=== PATIENT | male | born 1955 | race African-American/Black ===

== ENCOUNTER 2019-09-04 17:29 | Observation (INO) ==
[2019-09-04] MEDS ORDERED: ONDANSETRON 4 MG/2 ML VIAL IV STA (18:27)
[2019-09-04] MEDS ORDERED: DEXTROSE 50% 25 GM/50 ML VIAL IV STA (18:30)
[2019-09-04] MEDS ORDERED: DEXTROSE 50% 25 GM/50 ML SYRINGE IV ONE (18:31)
[2019-09-04 18:53] LABS: Basophils # 0.1 10*3/uL (0.0-0.2); Basophils % 0.6 % (0.0-0.8); Eosinophils # 0.1 10*3/uL (0.0-0.87); Hematocrit 24.9 VOL% (42.0-52.0); Hemoglobin 7.6 GM/DL (14.0-18.0); Immature Granulocytes % 0.6 %; Immature Granulocytes Absolute 0.06 #; Lymphocytes % 9.6 % (21.2-54.2); Mean Corpuscular HGB Conc 30.5 GM/DL (32-36); Mean Corpuscular Volume 90.5 FL (87-102); Mean Platelet Volume 8.2 FL (9.6-12.0); Monocytes % 7.1 % (1.7-12.7); Neutrophils % 81.1 % (38.7-73.9); Platelet Count 520 T/CUMM (130-400); Red Blood Count 2.75 MC/CUMM (3.8-5.5); Red Cell Distribution Width 17.3 % (9.3-17.3)
[2019-09-04 19:04] LABS: INR 1.3; PT Patient Result 13.8 SECS (9.8-11.9)
[2019-09-04 19:17] LABS: Albumin 2.5 G/DL (3.4-5.0); Bilirubin,Total 0.6 MG/DL (0.2-1.0); Calcium 9.5 MG/DL (8.5-10.1); Osmolality,Calculated 282.8 MOS/KG (273-304); Total Protein 6.5 G/DL (6.4-8.3)
[2019-09-04] MEDS ORDERED: hydrALAZINE 20 MG/1 ML VIAL ONE (19:51)
[2019-09-04] MEDS ORDERED: guaiFENesin/DM ER 600-30 MG TABLET PO PRN (20:52)
[2019-09-04] MEDS ORDERED: ONDANSETRON 4 MG/2 ML VIAL IV PRN (20:52)
[2019-09-04] MEDS ORDERED: GLUCAGON 1 MG VIAL IM PRN (20:52)
[2019-09-04] MEDS ORDERED: NICOTINE 21 MG/24 HR PATCH TRANSDERM PRN (20:52)
[2019-09-04] MEDS ORDERED: DEXTROSE 50% 25 GM/50 ML VIAL IV PRN (20:52)
[2019-09-05 04:02] LABS: % Iron Saturation 18.8 % (18-50); Ferritin 420.6 ng/ml (26-388)
[2019-09-05] MEDS ORDERED: DEXTROSE 50% 25 GM/50 ML SYRINGE IV ONE (04:03)
[2019-09-05 04:12] LABS: Folate 3.6 NG/ML (5.4-24.0)
[2019-09-05] MEDS ORDERED: DEXTROSE 10% 1,000 ML IV SCH (05:00)
[2019-09-05 05:06] LABS: Basophils # 0.1 10*3/uL (0.0-0.2); Basophils % 0.6 % (0.0-0.8); Eosinophils # 0.2 10*3/uL (0.0-0.87); Eosinophils % 1.4 % (0.00-10.9); Hematocrit 27.1 VOL% (42.0-52.0); Immature Granulocytes % 0.8 %; Immature Granulocytes Absolute 0.09 #; Lymphocytes # 1.3 10*3/uL (1.4-4.0); Lymphocytes % 11.2 % (21.2-54.2); Mean Corpuscular HGB Conc 29.5 GM/DL (32-36); Mean Corpuscular Volume 92.5 FL (87-102); Mean Platelet Volume 8.6 FL (9.6-12.0); Monocytes % 9.2 % (1.7-12.7); Neutrophils % 76.8 % (38.7-73.9); Platelet Count 661 T/CUMM (130-400); Red Blood Count 2.93 MC/CUMM (3.8-5.5); Red Cell Distribution Width 17.5 % (9.3-17.3); White Blood Count 11.2 T/CUMM (4-12)
[2019-09-05 05:21] LABS: Calcium 10.2 MG/DL (8.5-10.1); Osmolality,Calculated 273.1 MOS/KG (273-304)
[2019-09-05] MEDS ORDERED: DEXTROSE 10% 250 ML IV ONE (05:32)
[2019-09-05] MEDS: hydrALAZINE 20 MG/1 ML VIAL IV PRN ×2 (06:20→23:52)
[2019-09-05] MEDS: HEPARIN 5,000 UNIT/1 ML VIAL SUBCUT SCH ×2 (09:54→21:33)
[2019-09-05] MEDS: carvediloL 12.5 MG TABLET PO SCH ×2 (10:03→21:34)
[2019-09-05] MEDS: FOLIC ACID 1 MG TABLET PO SCH (10:03)
[2019-09-05] MEDS: amLODIPine 5 MG TABLET PO SCH (10:03)
[2019-09-05] MEDS: PANTOPRAZOLE 40 MG TABLET PO SCH (10:04)
[2019-09-05 16:31] LABS: Hepatitis B Core IgM Quant 0.18 Index; Hepatitis B Surface Ag Quant < 0.10 Index; Hepatitis B Surface Ag Result Negative (Negative); Hepatitis C Virus Ab Quant 0.11 Index; Hepatitis C Virus Ab Result Negative (Negative)
[2019-09-05] MEDS: ACETAMINOPHEN 325 MG TABLET PO PRN (21:34)
[2019-09-05] MEDS: MORPHINE 4 MG/1 ML VIAL IV PRN (23:51)
[2019-09-05] MEDS: diphenhydrAMINE CAP 25 MG CAPSULE PO PRN (23:53)
[2019-09-06 05:19] LABS: Basophils # 0.1 10*3/uL (0.0-0.2); Basophils % 0.4 % (0.0-0.8); Eosinophils # 0.2 10*3/uL (0.0-0.87); Eosinophils % 1.6 % (0.00-10.9); Hematocrit 25.7 VOL% (42.0-52.0); Hemoglobin 7.8 GM/DL (14.0-18.0); Immature Granulocytes % 0.9 %; Lymphocytes # 1.6 10*3/uL (1.4-4.0); Lymphocytes % 13.7 % (21.2-54.2); Mean Corpuscular HGB Conc 30.4 GM/DL (32-36); Mean Corpuscular Volume 91.5 FL (87-102); Mean Platelet Volume 8.6 FL (9.6-12.0); Monocytes % 9.6 % (1.7-12.7); Neutrophils % 73.8 % (38.7-73.9); Platelet Count 536 T/CUMM (130-400); Red Blood Count 2.81 MC/CUMM (3.8-5.5); Red Cell Distribution Width 17.7 % (9.3-17.3); White Blood Count 11.5 T/CUMM (4-12)
[2019-09-06] MEDS: MORPHINE 4 MG/1 ML VIAL IV PRN (05:20)
[2019-09-06 06:04] LABS: Albumin 2.4 G/DL (3.4-5.0); Bilirubin,Total 0.7 MG/DL (0.2-1.0); Calcium 9.8 MG/DL (8.5-10.1); Osmolality,Calculated 277.2 MOS/KG (273-304); Total Protein 7.2 G/DL (6.4-8.3)
[2019-09-06] MEDS: HEPARIN 5,000 UNIT/1 ML VIAL SUBCUT SCH ×2 (09:00→20:55)
[2019-09-06] MEDS: amLODIPine 5 MG TABLET PO SCH (09:00)
[2019-09-06] MEDS: PANTOPRAZOLE 40 MG TABLET PO SCH (09:00)
[2019-09-06] MEDS: carvediloL 12.5 MG TABLET PO SCH ×2 (09:01→20:56)
[2019-09-06] MEDS: FOLIC ACID 1 MG TABLET PO SCH (09:01)
[2019-09-06 14:32] LABS: Hemoglobin 7.8 GM/DL (14.0-18.0)
[2019-09-06] MEDS: ACETAMINOPHEN 325 MG TABLET PO PRN (20:58)
[2019-09-06] MEDS: diphenhydrAMINE CAP 25 MG CAPSULE PO PRN (21:59)
[2019-09-07] MEDS: hydrALAZINE 20 MG/1 ML VIAL IV PRN (05:54)
[2019-09-07] MEDS ORDERED: ceFAZolin 1,000 MG in SYRINGE 1 EACH IV ONE (08:45)
[2019-09-07] MEDS: PANTOPRAZOLE 40 MG TABLET PO SCH (09:06)
[2019-09-07] MEDS: HEPARIN 5,000 UNIT/1 ML VIAL SUBCUT SCH ×2 (09:06→21:15)
[2019-09-07] MEDS: FOLIC ACID 1 MG TABLET PO SCH (09:06)
[2019-09-07] MEDS: amLODIPine 5 MG TABLET PO SCH (09:06)
[2019-09-07] MEDS: carvediloL 12.5 MG TABLET PO SCH ×2 (09:06→21:14)
[2019-09-07] MEDS ORDERED: SODIUM CHLORIDE 0.9% 250 ML IV SCH ×2 (09:30→11:30)
[2019-09-07 09:34] LABS: Ferritin 533.1 ng/ml (26-388)
[2019-09-07] MEDS ORDERED: DIAZEPAM 5 MG TABLET PO ONE (09:43)
[2019-09-07] MEDS ORDERED: BUPIVACAINE MPF 0.25% 30 ML VIAL ONE (10:42)
[2019-09-07] MEDS ORDERED: LIDOCAINE 1%/EPI INJ 20 ML VIAL ONE (10:42)
[2019-09-07] MEDS ORDERED: propofoL 200 MG/20 ML VIAL IV ONE (11:58)
[2019-09-07] MEDS ORDERED: LIDOCAINE 2% 5 ML VIAL ONE (11:58)
[2019-09-07] MEDS ORDERED: MIDAZOLAM 2 MG/2 ML VIAL ONE (11:58)
[2019-09-07] MEDS ORDERED: fentaNYL 100 MCG/2 ML VIAL ONE (11:59)
[2019-09-08 07:00] LABS: Basophils % 0.5 % (0.0-0.8); Eosinophils # 0.2 10*3/uL (0.0-0.87); Eosinophils % 2.7 % (0.00-10.9); Hematocrit 24.7 VOL% (42.0-52.0); Hemoglobin 7.5 GM/DL (14.0-18.0); Immature Granulocytes % 0.6 %; Immature Granulocytes Absolute 0.05 #; Lymphocytes # 1.3 10*3/uL (1.4-4.0); Lymphocytes % 15.8 % (21.2-54.2); Mean Corpuscular HGB Conc 30.4 GM/DL (32-36); Mean Corpuscular Volume 89.5 FL (87-102); Mean Platelet Volume 8.8 FL (9.6-12.0); Monocytes % 9.8 % (1.7-12.7); Neutrophils % 70.6 % (38.7-73.9); Platelet Count 405 T/CUMM (130-400); Red Blood Count 2.76 MC/CUMM (3.8-5.5); Red Cell Distribution Width 17.7 % (9.3-17.3); White Blood Count 8.1 T/CUMM (4-12)
[2019-09-08 07:08] LABS: Calcium 9.7 MG/DL (8.5-10.1); Ferritin 660.4 ng/ml (26-388); Osmolality,Calculated 282.1 MOS/KG (273-304)
[2019-09-08 15:11] VITALS: BP 152/82
[2019-09-08] MEDS: FOLIC ACID 1 MG TABLET PO SCH (15:17)
[2019-09-08] MEDS: carvediloL 12.5 MG TABLET PO SCH (15:17)
[2019-09-08] MEDS: PANTOPRAZOLE 40 MG TABLET PO SCH (15:17)
[2019-09-08] MEDS: amLODIPine 5 MG TABLET PO SCH (15:17)
[2019-09-08] MEDS: HEPARIN 5,000 UNIT/1 ML VIAL SUBCUT SCH (15:18)
== END 2019-09-08 17:16 | disposition home health service (06) ==
LOC: EDBD → EDUNIT# → N.ED 17:29 → N.EDINP 17:29 → SUATTDRO 20:52 → N.3E 09-05 16:09
PROVIDERS: ADMIT Family Medicine; ATTEND Internal Medicine

== ENCOUNTER 2019-09-11 01:49 | Observation (INO) ==
[2019-09-11 03:58] LABS: Basophils # 0.1 10*3/uL (0.0-0.2); Basophils % 0.5 % (0.0-0.8); Eosinophils # 0.2 10*3/uL (0.0-0.87); Eosinophils % 1.7 % (0.00-10.9); Hematocrit 18.6 VOL% (42.0-52.0); Immature Granulocytes % 0.5 %; Immature Granulocytes Absolute 0.05 #; Lymphocytes # 1.7 10*3/uL (1.4-4.0); Lymphocytes % 15.6 % (21.2-54.2); Mean Corpuscular HGB Conc 29.6 GM/DL (32-36); Mean Corpuscular Volume 92.1 FL (87-102); Mean Platelet Volume 8.7 FL (9.6-12.0); Neutrophils % 73.7 % (38.7-73.9); Platelet Count 404 T/CUMM (130-400); Red Blood Count 2.02 MC/CUMM (3.8-5.5); Red Cell Distribution Width 17.3 % (9.3-17.3); White Blood Count 10.9 T/CUMM (4-12)
[2019-09-11 04:09] LABS: RBC,Urine 238 /HPF (0-4); Sperm,Urine Few /HPF (Negative); Squamous Epithelial Cell,Urine Few /HPF (0-10); WBC,Urine 1025 /HPF (0-6)
[2019-09-11 04:12] LABS: Apearance,Urine Cloudy (Clear); Glucose,Urine (UA) Negative (Negative); Ketones,Urine Negative (Negative); Protein,Urine >=500 MG/DL; Urine Color Amber (Yellow); Urine Specific Gravity 1.005 (1.001-1.035)
[2019-09-11 04:13] LABS: Bilirubin,Urine Negative (Negative); Nitrite,Urine Negative (Negative)
[2019-09-11 04:14] LABS: Blood, Urine Small mg/dL (Negative)
[2019-09-11 04:16] LABS: Urine Urobilinogen < 2.0 EU/DL (0.2-1.0)
[2019-09-11 04:19] LABS: Albumin 2.6 G/DL (3.4-5.0); Bilirubin,Total 0.5 MG/DL (0.2-1.0); Total Protein 7.6 G/DL (6.4-8.3)
[2019-09-11 04:20] LABS: Hemoglobin 5.5 GM/DL (14.0-18.0)
[2019-09-11] MEDS ORDERED: PIPERACILLIN/TAZOBACTAM 3,375 MG in SODIUM CHLORIDE 0.9% 100 ML IV STA (04:34)
[2019-09-11 04:45] LABS: INR 1.2
[2019-09-11 05:17] LABS: Hematocrit 20.1 VOL% (42.0-52.0)
[2019-09-11] MEDS ORDERED: GLUCAGON 1 MG VIAL IM PRN (05:35)
[2019-09-11] MEDS ORDERED: DEXTROSE 10% 250 ML BAG IV PRN (05:35)
[2019-09-11] MEDS ORDERED: ONDANSETRON 4 MG/2 ML VIAL IV PRN (05:35)
[2019-09-11] MEDS ORDERED: SODIUM CHLORIDE 0.9% 1,000 ML IV PRN (05:50)
[2019-09-11] MEDS ORDERED: DEXTROSE 50% 25 GM/50 ML VIAL IV STA (06:00)
[2019-09-11] MEDS ORDERED: HEPARIN 5,000 UNIT/1 ML VIAL SUBCUT SCH (06:00)
[2019-09-11] MEDS ORDERED: DEXTROSE 50% 25 GM/50 ML SYRINGE IV ONE (12:01)
[2019-09-11] MEDS ORDERED: DEXTROSE 5% LACTATED RINGERS 1,000 ML IV SCH (13:00)
[2019-09-11] MEDS: DEXTROSE 5% NACL 0.45% 1,000 ML IV SCH (17:00)
[2019-09-11] MEDS ORDERED: AMITRIPTYLINE 25 MG TABLET PO SCH (21:00)
[2019-09-11] MEDS: LOSARTAN 50 MG TABLET PO SCH (21:43)
[2019-09-11] MEDS: SEVELAMER CARBONATE 800 MG TABLET PO SCH (21:44)
[2019-09-11] MEDS: PIPERACILLIN/TAZOBACTAM 3,375 MG in SODIUM CHLORIDE 0.9% 100 ML IV SCH (21:44)
[2019-09-11] MEDS: levETIRAcetam 500 MG TABLET PO SCH (21:44)
[2019-09-11] MEDS: LABETALOL 200 MG TABLET PO SCH (21:44)
[2019-09-12 04:44] LABS: Basophils # 0.1 10*3/uL (0.0-0.2); Basophils % 0.4 % (0.0-0.8); Eosinophils # 0.3 10*3/uL (0.0-0.87); Eosinophils % 2.5 % (0.00-10.9); Hematocrit 20.8 VOL% (42.0-52.0); Immature Granulocytes % 0.6 %; Immature Granulocytes Absolute 0.07 #; Lymphocytes # 1.1 10*3/uL (1.4-4.0); Lymphocytes % 9.9 % (21.2-54.2); Mean Corpuscular HGB Conc 29.8 GM/DL (32-36); Mean Corpuscular Volume 92.4 FL (87-102); Mean Platelet Volume 8.6 FL (9.6-12.0); Monocytes % 7.3 % (1.7-12.7); Neutrophils % 79.3 % (38.7-73.9); Platelet Count 373 T/CUMM (130-400); Red Blood Count 2.25 MC/CUMM (3.8-5.5); Red Cell Distribution Width 16.6 % (9.3-17.3); White Blood Count 11.5 T/CUMM (4-12)
[2019-09-12 05:07] LABS: Hemoglobin 6.2 GM/DL (14.0-18.0)
[2019-09-12 05:12] LABS: Calcium 9.1 MG/DL (8.5-10.1)
[2019-09-12] MEDS ORDERED: SODIUM CHLORIDE 0.9% 1,000 ML IV PRN ×2 (05:37→10:52)
[2019-09-12] MEDS: levETIRAcetam 500 MG TABLET PO SCH ×2 (09:30→20:57)
[2019-09-12] MEDS: ATORVASTATIN 10 MG TABLET PO SCH (09:30)
[2019-09-12] MEDS: SEVELAMER CARBONATE 800 MG TABLET PO SCH ×2 (09:30→20:57)
[2019-09-12] MEDS: LABETALOL 200 MG TABLET PO SCH ×3 (09:30→20:57)
[2019-09-12] MEDS: ASPIRIN EC 81 MG TABLET PO SCH (09:30)
[2019-09-12] MEDS: PIPERACILLIN/TAZOBACTAM 3,375 MG in SODIUM CHLORIDE 0.9% 100 ML IV SCH ×2 (09:31→20:56)
[2019-09-12] MEDS ORDERED: DEXTROSE 50% 25 GM/50 ML VIAL IV PRN (12:53)
[2019-09-12] MEDS: DEXTROSE 5% NACL 0.45% 1,000 ML IV SCH (14:51)
[2019-09-12] MEDS ORDERED: SKIN HEALING OINT (AQUAPHOR) 50 GM TUBE TOP PRN (17:09)
[2019-09-12 19:32] LABS: Hematocrit 23.5 VOL% (42.0-52.0); Hemoglobin 7.2 GM/DL (14.0-18.0)
[2019-09-12] MEDS: LOSARTAN 50 MG TABLET PO SCH (20:57)
[2019-09-13 05:17] LABS: Basophils # 0.1 10*3/uL (0.0-0.2); Basophils % 0.4 % (0.0-0.8); Eosinophils # 0.2 10*3/uL (0.0-0.87); Eosinophils % 1.3 % (0.00-10.9); Hemoglobin 7.5 GM/DL (14.0-18.0); Immature Granulocytes % 0.7 %; Immature Granulocytes Absolute 0.08 #; Lymphocytes % 8.1 % (21.2-54.2); Mean Corpuscular HGB Conc 31.3 GM/DL (32-36); Mean Corpuscular Volume 90.2 FL (87-102); Mean Platelet Volume 8.8 FL (9.6-12.0); Monocytes % 7.3 % (1.7-12.7); Neutrophils % 82.2 % (38.7-73.9); Platelet Count 395 T/CUMM (130-400); Red Blood Count 2.66 MC/CUMM (3.8-5.5); Red Cell Distribution Width 15.6 % (9.3-17.3)
[2019-09-13 05:29] LABS: Calcium 8.9 MG/DL (8.5-10.1); Osmolality,Calculated 274.2 MOS/KG (273-304)
[2019-09-13] MEDS: ATORVASTATIN 10 MG TABLET PO SCH (08:45)
[2019-09-13] MEDS: ACETAMINOPHEN 325 MG TABLET PO PRN (08:46)
[2019-09-13] MEDS: LABETALOL 200 MG TABLET PO SCH ×3 (08:46→20:57)
[2019-09-13] MEDS: PIPERACILLIN/TAZOBACTAM 3,375 MG in SODIUM CHLORIDE 0.9% 100 ML IV SCH (08:46)
[2019-09-13] MEDS: ASPIRIN EC 81 MG TABLET PO SCH (08:46)
[2019-09-13] MEDS: levETIRAcetam 500 MG TABLET PO SCH ×2 (08:46→20:57)
[2019-09-13] MEDS: SEVELAMER CARBONATE 800 MG TABLET PO SCH ×2 (09:05→17:19)
[2019-09-13] MEDS: DEXTROSE 5% NACL 0.45% 1,000 ML IV SCH (12:08)
[2019-09-13] MEDS: LOSARTAN 50 MG TABLET PO SCH (20:57)
[2019-09-14] MEDS ORDERED: AZITHROMYCIN 250 MG TABLET PO SCH (09:00)
[2019-09-14] MEDS: LABETALOL 200 MG TABLET PO SCH ×3 (10:48→20:35)
[2019-09-14] MEDS: SEVELAMER CARBONATE 800 MG TABLET PO SCH ×2 (10:48→17:45)
[2019-09-14] MEDS: ASPIRIN EC 81 MG TABLET PO SCH (13:59)
[2019-09-14] MEDS: ATORVASTATIN 10 MG TABLET PO SCH (14:00)
[2019-09-14] MEDS: levETIRAcetam 500 MG TABLET PO SCH ×2 (14:00→20:35)
[2019-09-14] MEDS ORDERED: LEVOFLOXACIN 500 MG TABLET PO SCH (16:30)
[2019-09-14] MEDS: LOSARTAN 50 MG TABLET PO SCH (20:35)
[2019-09-15] MEDS: ATORVASTATIN 10 MG TABLET PO SCH (08:56)
[2019-09-15] MEDS: LABETALOL 200 MG TABLET PO SCH ×3 (08:56→21:07)
[2019-09-15] MEDS: levETIRAcetam 500 MG TABLET PO SCH ×2 (08:56→21:07)
[2019-09-15] MEDS: ASPIRIN EC 81 MG TABLET PO SCH (08:56)
[2019-09-15] MEDS: SEVELAMER CARBONATE 800 MG TABLET PO SCH ×3 (09:16→16:50)
[2019-09-15] MEDS: LOSARTAN 50 MG TABLET PO SCH (21:07)
[2019-09-16] MEDS: ACETAMINOPHEN 325 MG TABLET PO PRN ×2 (03:38→21:31)
[2019-09-16 03:48] LABS: Basophils # 0.1 10*3/uL (0.0-0.2); Basophils % 0.6 % (0.0-0.8); Eosinophils # 0.2 10*3/uL (0.0-0.87); Eosinophils % 1.4 % (0.00-10.9); Hematocrit 23.8 VOL% (42.0-52.0); Hemoglobin 7.2 GM/DL (14.0-18.0); Immature Granulocytes % 0.7 %; Immature Granulocytes Absolute 0.08 #; Lymphocytes # 1.5 10*3/uL (1.4-4.0); Lymphocytes % 12.9 % (21.2-54.2); Mean Corpuscular HGB Conc 30.3 GM/DL (32-36); Mean Corpuscular Volume 93.7 FL (87-102); Mean Platelet Volume 8.9 FL (9.6-12.0); Monocytes % 9.5 % (1.7-12.7); Neutrophils % 74.9 % (38.7-73.9); Platelet Count 503 T/CUMM (130-400); Red Blood Count 2.54 MC/CUMM (3.8-5.5); Red Cell Distribution Width 15.1 % (9.3-17.3); White Blood Count 11.7 T/CUMM (4-12)
[2019-09-16 04:14] LABS: Calcium 9.2 MG/DL (8.5-10.1); Osmolality,Calculated 275.1 MOS/KG (273-304)
[2019-09-16] MEDS: LABETALOL 200 MG TABLET PO SCH ×3 (10:38→21:21)
[2019-09-16] MEDS: ASPIRIN EC 81 MG TABLET PO SCH (10:39)
[2019-09-16] MEDS: ATORVASTATIN 10 MG TABLET PO SCH (10:40)
[2019-09-16] MEDS: SEVELAMER CARBONATE 800 MG TABLET PO SCH ×4 (10:40→17:44)
[2019-09-16] MEDS: levETIRAcetam 500 MG TABLET PO SCH ×2 (10:42→21:22)
[2019-09-16] MEDS: LOSARTAN 50 MG TABLET PO SCH (21:22)
[2019-09-17] MEDS: ACETAMINOPHEN 325 MG TABLET PO PRN ×3 (04:55→21:56)
[2019-09-17] MEDS: LABETALOL 200 MG TABLET PO SCH ×3 (12:37→21:57)
[2019-09-17] MEDS: SEVELAMER CARBONATE 800 MG TABLET PO SCH ×3 (12:37→19:50)
[2019-09-17] MEDS: ATORVASTATIN 10 MG TABLET PO SCH (13:57)
[2019-09-17] MEDS: levETIRAcetam 500 MG TABLET PO SCH ×2 (13:58→21:57)
[2019-09-17] MEDS: ASPIRIN EC 81 MG TABLET PO SCH (13:58)
[2019-09-17] MEDS: LOSARTAN 50 MG TABLET PO SCH (21:57)
[2019-09-18] MEDS ORDERED: CHLORHEXIDINE 4% SOLN 118 ML BOTTLE TOP ONE (07:16)
[2019-09-18] MEDS: ASPIRIN EC 81 MG TABLET PO SCH (08:28)
[2019-09-18] MEDS: ATORVASTATIN 10 MG TABLET PO SCH (08:28)
[2019-09-18] MEDS: LABETALOL 200 MG TABLET PO SCH ×3 (08:28→20:31)
[2019-09-18] MEDS: SEVELAMER CARBONATE 800 MG TABLET PO SCH ×3 (08:28→17:10)
[2019-09-18] MEDS: levETIRAcetam 500 MG TABLET PO SCH ×2 (08:28→20:31)
[2019-09-18] MEDS ORDERED: SILVER SULFADIAZINE 1% CREAM 25 GM TUBE TOP SCH (09:00)
[2019-09-18] MEDS: ACETAMINOPHEN 325 MG TABLET PO PRN ×2 (13:24→17:20)
[2019-09-18] MEDS: LOSARTAN 50 MG TABLET PO SCH (20:31)
[2019-09-19] MEDS: ACETAMINOPHEN 325 MG TABLET PO PRN ×2 (00:37→07:18)
[2019-09-19 05:58] LABS: Basophils # 0.1 10*3/uL (0.0-0.2); Basophils % 0.7 % (0.0-0.8); Eosinophils # 0.1 10*3/uL (0.0-0.87); Eosinophils % 1.1 % (0.00-10.9); Hematocrit 25.1 VOL% (42.0-52.0); Hemoglobin 7.6 GM/DL (14.0-18.0); Immature Granulocytes % 0.6 %; Immature Granulocytes Absolute 0.06 #; Lymphocytes # 1.8 10*3/uL (1.4-4.0); Lymphocytes % 16.9 % (21.2-54.2); Mean Corpuscular HGB Conc 30.3 GM/DL (32-36); Mean Platelet Volume 8.6 FL (9.6-12.0); Monocytes % 7.8 % (1.7-12.7); Neutrophils % 72.9 % (38.7-73.9); Platelet Count 504 T/CUMM (130-400); Red Cell Distribution Width 14.9 % (9.3-17.3); White Blood Count 10.6 T/CUMM (4-12)
[2019-09-19 07:13] LABS: Calcium 9.3 MG/DL (8.5-10.1); Osmolality,Calculated 273.5 MOS/KG (273-304)
[2019-09-19] MEDS ORDERED: MULTIVITAMIN (BEROCCA) TABLET PO SCH (09:00)
[2019-09-19] MEDS ORDERED: SILVER SULFADIAZINE 1% CREAM 400 GM JAR TOP SCH (09:00)
[2019-09-19 11:54] VITALS: BP 130/52
[2019-09-19] MEDS: levETIRAcetam 500 MG TABLET PO SCH (12:03)
[2019-09-19] MEDS: ATORVASTATIN 10 MG TABLET PO SCH (12:03)
[2019-09-19] MEDS: SEVELAMER CARBONATE 800 MG TABLET PO SCH ×2 (12:03→12:06)
[2019-09-19] MEDS: ASPIRIN EC 81 MG TABLET PO SCH (12:03)
[2019-09-19] MEDS: LABETALOL 200 MG TABLET PO SCH (12:03)
== END 2019-09-19 13:54 | disposition home or self-care (01) ==
LOC: EDBD → EDUNIT# → N.EDINP 01:49 → N.ED 01:49 → SUATTDRO 05:07 → N.3E 13:42
PROVIDERS: ADMIT Emergency Medicine; ATTEND Internal Medicine